=== PATIENT | male | born 1975 | race Caucasian/White ===

== ENCOUNTER 2020-12-29 02:28 | Emergency (ER) | payer OTHER ==
[~2020-12-29] VITALS: Ht 185.4 cm; Wt 163.3 kg
[2020-12-29 02:28] VITALS: BP 135/88
--- NOTE | 2020-12-29 02:28 | NUR ---
SHELBY BARKER TAKEN TO BED #11
--- NOTE | 2020-12-29 02:39 | NUR ---
Dr. Diggs examining patient.
[2020-12-29] MEDS ORDERED: NACL 0.9% 1,000 ML IV ONE (02:45)
[2020-12-29 02:57] LABS: BASOPHILS % (AUTO) 0.3 % (0.0-2.0); EOSINOPHILS # (AUTO) 0.1 K/uL (0-0.4); EOSINOPHILS % (AUTO) 1.6 % (0.0-4.0); HEMATOCRIT 44.1 % (36-52); LYMPHOCYTES # (AUTO) 2.1 K/uL (2.0-11.5); LYMPHOCYTES % (AUTO) 30.6 % (20.5-51.1); MEAN CORPUSCULAR HEMOGLOBIN 34 pg (27-31); MEAN CORPUSCULAR HGB CONC 34 g/dL (33-37); MEAN CORPUSCULAR VOLUME 98.9 fL (80-94); MONOCYTES # (AUTO) 0.6 K/uL (0.8-1.0); MONOCYTES % (AUTO) 8.3 % (1.7-9.3); NEUTROPHILS # (AUTO) 4.2 K/uL (1.8-7.7); NEUTROPHILS % (AUTO) 59.2 % (42.2-75.2); PLATELET COUNT (AUTO) 168 K/uL (140-450); RED BLOOD CELL COUNT(AUTO) 4.46 MIL/uL (4.20-6.10)
--- NOTE | 2020-12-29 02:57 | NUR ---
45 YO M BIBA WITH C/C OF LT SIDED ABD AND FLANK PAIN X3 DAYS. +DIARRHEA. DENIES N/V MEDHX- DENIES NKA
--- NOTE | 2020-12-29 02:58 | NUR ---
RAD AT BEDSIDE.
[2020-12-29 03:11] LABS: ALBUMIN 4.1 g/dL (3.4-5.0); ANION GAP 15.7 (8-16); CARBON DIOXIDE 22.2 mmol/L (21-32); CREATININE 1.2 mg/dL (0.6-1.3); POTASSIUM 3.9 mmol/L (3.5-5.1); TOTAL BILIRUBIN 1.9 mg/dL (0.0-1.0)
[2020-12-29] MEDS ORDERED: MAGN1.7529 PO (04:02)
--- NOTE | 2020-12-29 04:10 | NUR ---
PT AMBULATED TO RR TO GIVE URINE. PROVIDED WITH BASIN AND WASH CLOTHES TO CLEAN UP PER REQUEST.
--- NOTE | 2020-12-29 04:24 | NUR ---
PT IS BACK IN BED.
--- NOTE | 2020-12-29 04:25 | NUR ---
URINE COLLECTED AND TAKEN TO LAB.
[2020-12-29 04:33] LABS: APPEARANCE,URINE CLEAR (CLEAR); BILIRUBIN,URINE 1+ (NEGATIVE); BLOOD, URINE NEGATIVE (NEGATIVE); COLOR,URINE ORANGE (YELLOW); LEUKOCYTE ESTERASE ,URINE NEGATIVE (NEGATIVE); NITRITE, URINE NEGATIVE (NEGATIVE); UGLUCOSE NEGATIVE (NEGATIVE)
[2020-12-29 04:46] VITALS: BP 135/88
--- NOTE | 2020-12-29 04:46 | NUR ---
Patient discharged with v/s stable. Written and verbal after care instructions given and explained. Patient alert, oriented and verbalized understanding of instructions. Ambulatory with steady gait. All questions addressed prior to discharge. ID band removed. Patient advised to follow up with PMD. Rx of MAGNESIUM CITRATE given. Patient educated on indication of medication including possible reaction and side effects. Opportunity to ask questions provided and answered.
== END 2020-12-29 04:46 | disposition home or self-care (01) ==
LOC: MED 02:28
DX: K59.00 Constipation, unspecified (principal)
CPT/HCPCS: 36415; 74018; 80053; 81003; 83605; 83690; 85025; 96360; 99284; J7030; Q0092